=== PATIENT | female | born 2000 ===

== ENCOUNTER → 2020-03-12 | Outpatient (CLI) | payer OTHER ==
[~2020-03-12] MED LIST: PRENATAL TABLET PO
== END ==
LOC: ZCOL.LAB 09:00
DX: Z20.828 Contact with and (suspected) exposure to other viral communicable diseases (principal)

== ENCOUNTER 2020-03-16 18:30 | Outpatient (CLI) | payer OTHER ==
[~2020-03-16] VITALS: Ht 152.4 cm; Wt 75.5 kg
--- NOTE | 2020-03-16 18:35 | NUR ---
183- Pt. ambulatory the floor with by her side. Pt. orientated to room and changed into clean gown. Pt. reports GFM, no LOF and states she has been bhavya since about 3pm today. States that this morning she had some bloody show and called the floor to see if she needed to come in, but hasn't had any since. Pt. reports losing mucus plug last week. Pt. reports contractions about every 5 minutes apart and becoming more and more uncomfortable. 1840- EFM and TOCO on and tracing. Vital signs taken and assessment completed. Discussed plan for the evening with patient. Call light within reach.
[2020-03-16] MEDS ORDERED: PRENATAL TABLET PO (18:55)
[2020-03-16 20:05] VITALS: BP 117/69; PULSE 94; TEMP 97.9
== END 2020-03-16 20:20 | disposition home or self-care (01) ==
LOC: LDRO 18:30
DX: O62.9 Abnormality of forces of labor, unspecified (principal); Z3A.39 39 weeks gestation of pregnancy

== ENCOUNTER 2020-03-17 08:20 | Inpatient (IN) | payer OTHER ==
[~2020-03-17] VITALS: Ht 152.5 cm; Wt 75.5 kg
[2020-03-17] VITALS (52 sets, daily range): BP systolic 11–136; BP diastolic 43–88; PULSE 75–133; TEMP 97.5–98.4
--- NOTE | 2020-03-17 08:38 | NUR ---
0830 patient here for complaints of contractions getting worse since 2 am. Efm on FHT 120s baby very active. Pt breaths through each contractions. Assessment completed. SVE /-2 bulgy bag noted at this time. Dr reeves called and message left with OR nurse to call back soon.
--- NOTE | 2020-03-17 09:34 | NUR ---
0900 AT BEDSIDE. ORDERS TO ADMIT AT THIS TIME
--- NOTE | 2020-03-17 09:36 | NUR ---
0915 OCCASIONAL LATES NOTED. PATIENT REPOSOTIONED. DR BAUMANN UPDATED. REPORT GIVEN TO Emily ATKINSON RN TO ASSUME CARE AT THIS TIME
[2020-03-17 09:37] LABS: BASO # 0.1 (0.0-0.2); BASO % 0.4 % (0.0-2.0); EOS % 0.2 % (0-4.0); GRAN % 81.9 % (42.2-75.2); HEMOGLOBIN 15.2 g/dl (12.5-16.0); LYMPH # 2.2 (1.2-3.4); MEAN CELL VOLUME 89 fl (80.0-100.0); MEAN CORPUSCULAR HEMOGLOBIN 30 pg (27.0-31.0); MEAN CORPUSCULAR HGB CONC 33 g/dl (33.0-37.0); MEAN PLATELET VOLUME 10.7 fl (7.4-10.4); MONO # 0.8 (0.1-0.6); MONO % 4.3 % (1.7-9.3); PLATELET COUNT 286 K/mm3 (130-400); RED BLOOD COUNT 5.16 M/mm3 (4.10-5.30); REDCELL DISTRIBUTION WIDTH-CV 13.9 % (11.5-14.5)
--- NOTE | 2020-03-17 12:35 | NUR ---
RN at [facility] with physician for AROM. SVE per provider unchanged with AROM of clear fluid. Pericare performed. Pericare performed. Pt repostioned PP. Orders per Dr. Ramos to begein pitocin infusion per policy. Pitocin started at 2mU. This RN will increase pitocin per hospital policy given 20-30 minutes of assessing FHR and contraction pattern with AROM and administration of pitocin 2mU. 1252, 1254: Late deceleration noted. Pt repostioned LL from PP. RN at bedside. 1304-Late deceleration noted. RN at bedside with LR fluid bolus. Ctx palpate firm. 1310, 1313: No decelerations noted with ctx. RN at bedside. Will increase pitocin after 15 minutes from 1310 given no late deceleration.
--- NOTE | 2020-03-17 13:19 | NUR ---
Intermittent late deceleration noted. Moderate variabilitly remains.
--- NOTE | 2020-03-17 13:35 | NUR ---
RN at bedside to increase pitocin and place peanut ball. Variable noted with late onset. BP lowered from baseline. LR bolus infusing. Ephedrine given. See EMAR. Pt repositioned RL with peanut ball.
--- NOTE | 2020-03-17 14:19 | NUR ---
1419, 1424, 1429: Late decelerations noted. Pt repositioned LL with peanut ball. 1435, 1439-Variable noted with late onset. BP 83/43 on LL. Pt repositioned. RL with peanut ball.
--- NOTE | 2020-03-17 15:15 | NUR ---
Bedside report received from Luis Daniel SETHI. SVE per Luis Daniel RN- and pitocin increased to 8mU. 1530: FHR baseline 145bpm and recurrent variable/late decelerations noted. Patient in jc position. 1600: FHR baseline 145bpm and recurrent variable decelerations noted with accelerations and moderate variability noted. 1610: Patient left lateral. Recurrent subtle late decelerations noted. 1630: Patient right lateral. 1645: SVE- and scalp stimulation noted. 1715: Recurrent late deceleration noted and patient repositioned. 1755: Dr. Ramos at bedside and assessing patient and FHR strip. SVE per physician and discussing narrow pelvis felt. Patient right lateral with left leg resting in stirrup. 1810: Recurrent late decelerations noted and Dr. Ramos at nurses station reviewing FHR strip. Patient left lateral and right leg resting in stirrup. 1815: Dr. Ramos at bedside and discussing FHR strip and the possible need for csection. Options discussed at this time. 1825: Report given to Royer Mcadams RN. Patient and spouse decide for at this time and Dr. Ramos at bedside discussing plan and risk factors. Patient prepped for surgery. 1836: Patient off monitor and to OR via bed.
[2020-03-18 04:45] VITALS: BP 97/48; PULSE 71; TEMP 97.5
--- NOTE | 2020-03-18 08:15 | NUR ---
Rests in bed, alert. Request pain medication. Percocet 5/ two given per request and as ordered.
[2020-03-18 08:30] VITALS: BP 103/44; PULSE 74; TEMP 97.8
[2020-03-18] MEDS ORDERED: PERCOCET 325 MG1 TA2 PO (09:15)
[2020-03-18] MEDS ORDERED: IBU800 M1 PO (09:15)
--- NOTE | 2020-03-18 10:06 | NUR ---
Initial visit; Parents thanked Candy [employer]aff[employer]er for offering congratulations and God's blessings for the of their son. Candy Waffle Assembler thanked family for choosing [facility].
[2020-03-18 12:00] VITALS: BP 88/53; PULSE 77; TEMP 97.4
[2020-03-18 16:15] VITALS: BP 102/59; PULSE 74; TEMP 97.6
--- NOTE | 2020-03-18 16:44 | NUR ---
Rests in bed, alert. Percocet 5/325 mg two given per request and as ordered.
[2020-03-18 19:00] VITALS: BP 110/38; PULSE 76; TEMP 97.1
[2020-03-19 08:17] VITALS: BP 102/51; PULSE 98; TEMP 97.5
--- NOTE | 2020-03-19 13:00 | NUR ---
Discharge instructions given, pt verbalizes understanding. No further questions noted. Bands matched and hugs tag removed.
== END 2020-03-19 13:30 | disposition home or self-care (01) | DRG 788 ==
LOC: LDRO 08:20 → LDR 08:50 → OB 08:50 → LDR 14:59 → OB 21:00
PROVIDERS: ADMIT Student in an Organized Health Care Education/Training Program
PROC: 10D00Z1 Extraction of Products of Conception, Low, Open Approach (ICD-10-PCS; principal; 2020-03-17)
DX: O65.1 Obstructed labor due to generally contracted pelvis (principal); Z3A.39 39 weeks gestation of pregnancy; Z37.0 Single live birth
CPT/HCPCS: J0690; J1100; J1885; J2405; J2590; J2704; J3010; J7120